=== PATIENT | male | born 1990 | race Caucasian/White ===

== ENCOUNTER 2017-05-25 08:07 | Emergency (ER) | payer OTHER, BC ==
[~2017-05-25] VITALS: Ht 182.9 cm; Wt 88.0 kg
[2017-05-25 08:12] VITALS: Ht 182.9 cm; Wt 88.0 kg
[2017-05-25] MEDS ORDERED: KETOROLAC TROMETHAMINE 60 MG/2 ML VIAL IM STA (08:31)
--- NOTE | 2017-05-25 08:37 | EMERGENCY ROOM VISIT NOTE ---
ED Visit Note First contact with patient: 08:23 CHIEF COMPLAINT: Right hip/side pain s/p fall HISTORY OF PRESENT ILLNESS: This 26-year-old male patient presents to the emergency department ambulatory, with his grandmother, complaining of pain in the right hip, and radiating up into his side which began last night after a fall while snowboarding. The patient states he was going over a jump at approximately 8:30 PM last night, when he fell, landing on his right side. He is able to ambulate and move, but he states the pain is significantly worse with walking or bending. He states he had significant difficulty standing on his right leg bending over to put his pants on his left leg this morning. The patient notes the pain as sharp and a 7/10. The patient has taken nothing for relief of the pain. The patient denies any loss of control of their bowel or bladder functions. There has been no leg numbness or weakness, and no change in sensation. No nausea or vomiting or abdominal pain. No chest pain or shortness of breath. The patient has not had prior back injuries. No dysuria or increased urinary frequency. He denies any difficulty breathing or pain in his ribs. REVIEW OF SYSTEMS: A 10 system review of systems was performed with positives and pertinent negatives listed in the history of present illness. All other systems were reviewed and are negative. ALLERGIES: None MEDICATIONS: None PMH: Allergic rhinitis SOCIAL HISTORY: The patient lives locally with family. He denies drug, alcohol , tobacco use. PHYSICAL EXAM: VITALS: Vitals are noted on the nurse's note and reviewed by myself. Vital signs stable. GENERAL: This is a 26-year-old white male, in no acute distress, nondiaphoretic , well-developed well-nourished. SKIN: The skin was without rashes, erythema, edema, or bruising. Capillary refill less than 2 seconds. NECK: Supple without nuchal rigidity. No cervical spine tenderness. No paraspinous muscle tenderness. HEART: Regular rate and rhythm without murmurs gallops or rubs. LUNGS: Clear to auscultation bilaterally without wheezes, rales or rhonchi. ABDOMEN: Positive bowel sounds x 4. Normal tympanic percussion. Soft, nontender, without masses or organomegaly. Matthews sign negative. MUSCULOSKELETAL: No muscle atrophy, erythema, or edema noted of the back. There is significant tenderness over the right hip and pelvis. The patient does have full active and passive ROM of the RLE, however, movement significantly worsens his discomfort. There is no tenderness over the lumbar spinous processes. There is no tenderness over the paraspinous muscles bilaterally. There is no tenderness over the thoracic spine or paraspinous muscles. There are no muscle spasms present. The patient is slow to move around with maximum tenderness with position changes. Negative straight leg raise test. NEURO: Patient was alert and oriented to person place and time. Normal sensation to light and sharp touch. Deep tendon reflexes 2+ in the lower extremities. Dorsalis pedis pulse 2+ bilaterally. Strength 5/5 and equal in the bilateral lower extremities. RADIOLOGY: R PELVIS/UNILATERAL HIP 2-3VIEWS CLINICAL HISTORY: right hip/pelvis pain s/p fall trauma. Pain. COMPARISON: None. DISCUSSION: The bones and joint spaces appear intact. There is no evidence of fracture, dislocation or bony disease. There is no evidence for soft tissue swelling. IMPRESSION: Negative study. The above report was generated using voice recognition software. It may contain grammatical, syntax or spelling errors. Electronically signed by: Juventino Johns M.D. 05/25/2017 9:36 AM Dictated Date/Time: 05/25/2017 9:36 AM EMERGENCY DEPARTMENT COURSE: The patient was seen and evaluated as above. X- ray of the right hip and pelvis was ordered and performed. The patient was given 60 mg Toradol IM. He did note significant improvement in his pain. X- rays were reviewed by myself and radiologist. These did not show any bony abnormalities. The patient was reassessed and was feeling better. Discussed the findings with the patient and his grandmother at bedside. Discharge instructions reviewed, the patient was discharged home in good condition. I attest that I have personally reviewed the patient's current medication list. Patient was found to have normal blood pressure on screening and does not require follow-up. DIFFERENTIAL DIAGNOSIS: Fracture, contusion, sprain, strain, hematoma, malignancy, and others DIAGNOSIS: Right hip contusion Current/Historical Medications Scheduled PRN Cyclobenzaprine Hcl (Flexeril), 10 MG PO TID PRN for Muscle Spasms Allergies Coded Allergies: No Known Allergies (Unverified , 05/25/17) Vital Signs Date Time Temp Pulse Resp B/P (MAP) Pulse Ox O2 Delivery O2 Flow Rate FiO2 05/25/17 10:30 69 18 110/70 97 05/25/17 08:12 36.7 77 18 138/72 97 Room Air Medications Administered Medications (Trade) Dose Ordered Sig/León Route Start Time Stop Time Status Last Admin Dose Admin Ketorolac Tromethamine (Toradol Inj) 60 mg NOW STAT IM 05/25/17 08:31 05/25/17 08:33 DC 05/25/17 08:46 60 MG Departure Information Impression Primary Impression: Contusion of right hip Additional Impression: Fall from snowboard, initial encounter Dispostion Home / Self-Care Condition GOOD Prescriptions Cyclobenzaprine Hcl (FLEXERIL) 10 Mg Tab 10 MG PO TID Y for Muscle Spasms, #15 TAB Prov: Lucila Mckenzie PA-C 05/25/17 Referrals No Doctor, Assigned (PCP) Patient Instructions ED Contusion Hip, [facility] Additional Instructions You have been treated in the Emergency Department for a hip contusion. X-ray did rule out fracture. You have been prescribed Flexeril (cyclobenzaprine) 1 tab orally, up to three times per day. Do NOT exceed 30 mg (3 tabs) per day. Take your first dose at bedtime as it can make you drowsy. Always take all medications as prescribed. For pain control, you can use the following [id number] medicines (if >12 yo): Ibuprofen(Motrin, Advil) may be used for fever or pain. Use 600mg every six hours as needed. Take with food. Avoid using more than 2400mg in a 24 hour period. Do not use 2400mg per day for more than three consecutive days without physician direction. Prolonged inappropriate use can lead to stomach upset or ulcers. (AND/OR) Acetaminophen(Tylenol) may be used for fever or pain. Use 1000mg every six hours as needed. Avoid using more than 3000mg in a 24 hour period. If this is an acute injury, ice can be applied to the area of pain for the first 3 days to help decrease pain and inflammation. After the first 3 days, a heating pad can be used over the area for continued soothing relief. You should schedule a follow-up appointment in 2-3 days with your Primary Care Provider for further evaluation and treatment of your hip pain. Return to the Emergency Department if your current symptoms worsen despite treatment course outlined above, or if you develop any of the following symptoms : intractable pain despite aforementioned treatment course, loss of control of your bowel or bladder, numbness or tingling in your groin, or development of a fever. Problem Qualifiers Primary Impression: Contusion of right hip Encounter type: initial encounter Qualified Codes: S70.01XA - Contusion of right hip, initial encounter
--- NOTE | 2017-05-25 09:37 | DIAGNOSTIC IMAGING REPORT ---
R PELVIS/UNILATERAL HIP 2-3VIEWS CLINICAL HISTORY: right hip/pelvis pain s/p fall trauma. Pain. COMPARISON: None. DISCUSSION: The bones and joint spaces appear intact. There is no evidence of fracture, dislocation or bony disease. There is no evidence for soft tissue swelling. IMPRESSION: Negative study. The above report was generated using voice recognition software. It may contain grammatical, syntax or spelling errors. Electronically signed by: Juventino Johns M.D. 05/25/2017 9:36 AM Dictated Date/Time: 05/25/2017 9:36 AM
[2017-05-25] MEDS ORDERED: CYCL10TA6 PO (10:00)
[2017-05-25 10:30] VITALS: BP 110/70; PULSE 69; O2SAT 97
== END 2017-05-25 10:42 | disposition home or self-care (01) ==
LOC: C.EDB 08:08
DX: S70.01XA Contusion of right hip, initial encounter (principal); W19.XXXA Unspecified fall, initial encounter